=== PATIENT | female | born 1970 | race Caucasian/White ===

== ENCOUNTER → 2018-02-10 | Outpatient (CLI) | payer BC, OTHER ==
--- NOTE | 2018-02-11 14:23 | MAM ---
EXAM DESCRIPTION: 3D Screening BILATERAL : Digital Mammography. CLINICAL HISTORY: 47 years Female SCREEN . No personal history of breast cancer. Remote family history of breast cancer. Childbirth. Premenopausal. No HRT. Bilateral breast biopsies.. Lifetime risk of developing breast cancer (Tyrer-Cuzick model) is 14.4 %. COMPARISON: Bilateral 2-D screening digital mammography 02/07/2013. TECHNIQUE: Bilateral CC and MLO projection full-field images, Digital tomosynthesis mammographic technique. Bilateral digital 2-D full-field MLO images. CAD not utilized. FINDINGS: The breast parenchymal density pattern is: Scattered areas of fibroglandular density. . Stable nodular mass anterior superior right breast. Large lobulated circumscribed mass in the posterior medial left breast is no longer present. Focal asymmetry in the middle third of the left breast at the 230 clock position, approximately 7 cm from the nipple. No new focal, stellate mass or density, focal asymmetry , and no suspicious microcalcifications right breast. IMPRESSION: BI-RADS CATEGORY: 0 - INCOMPLETE- Need additional imaging evaluation. FOLLOW-UP: Recall for additional imaging: Special diagnostic images of the region of interest in the left breast along with targeted left breast ultrasound.. Written communication concerning the IMPRESSION and Follow-up, will be mailed to the patient and referring health care provider. Electronically signed by: Zane Caldera MD 02/11/2018 2:22 PM CDT
== END ==
LOC: MAMMO 16:28
PROVIDERS: ATTEND Family Medicine
DX: Z12.31 Encounter for screening mammogram for malignant neoplasm of breast (principal)

== ENCOUNTER → 2018-02-17 | Outpatient (CLI) | payer OTHER ==
--- NOTE | 2018-02-17 15:01 | US ---
EXAM DESCRIPTION: Breast,Left: Ultrasound CLINICAL HISTORY: 47 yearsFemaleABNORMAL MAMMO COMPARISON: Digital diagnostic mammogram left breast on this visit. Bilateral screening digital breast tomosynthesis 02/11/2016. TECHNIQUE: Transcutaneous scanning of the left breast utilizing tamez-scale and Doppler modes. Scanning performed by the auto refinisher and Dr. Caldera. FINDINGS: Scanning of the lateral left breast with emphasis at the 300 clock position 8 cm from the nipple. Heterogeneous fibroglandular and fatty elements. Small anechoic object with well-defined weber surrounded by fat measuring 2.6 mm, parallel orientation and posterior acoustic enhancement features. No distinct solid mass. No large calcifications or parenchymal edema. No overlying skin changes. No abnormal vascularity. IMPRESSION: 1. Bi-Rads Category 2: Benign. 2. Please refer to left breast digital diagnostic tomosynthesis and 2-D images on this visit. The FINDINGS and the FOLLOW-UP plan were reviewed in person with the patient after the examination. Written communication explaining the IMPRESSION and FOLLOW-UP will be mailed to the patient and referring care provider. Electronically signed by: Zane Caldera MD 02/17/2018 3:00 PM CDT
--- NOTE | 2018-02-17 15:57 | MAM ---
EXAM DESCRIPTION: 3D Diagnostic, Left: Digital Mammography CLINICAL HISTORY: 47 yearsFemaleABNORMAL MAMMO . Focal asymmetry upper outer quadrant middle third left breast.. Prior breast biopsies. COMPARISON: Bilateral screening digital breast tomosynthesis 02/10/2018. Left targeted breast ultrasound following this examination. TECHNIQUE: Left LM projection full-field images, digital mammographic tomosynthesis technique. CAD not utilized. FINDINGS: The breast parenchymal density pattern is: Scattered areas of fibroglandular density. Extremely dense breast tissue, which lowers the sensitivity of mammography. No skin thickening or nipple retraction focal asymmetry seen on the prior study is not as well demonstrated on full-field LM tomosynthesis of the left breast. Ultrasound: Scanning of the lateral left breast with emphasis at the 300 clock position 8 cm from the nipple. Heterogeneous fibroglandular and fatty elements. Small anechoic object with well-defined weber surrounded by fat measuring 2.6 mm, parallel orientation and posterior acoustic enhancement features. No distinct solid mass. No large calcifications or parenchymal edema. No overlying skin changes. No abnormal vascularity. IMPRESSION: Benign exam. BIRAD CATEGORY: 2 BENIGN FINDINGS. RECOMMENDATIONS: FOLLOW UP: Return to routine digital bilateral screening, one year interval from January 2018. The FINDINGS and the FOLLOW-UP plan were reviewed in person with the patient after the examination. Written communication explaining the IMPRESSION and FOLLOW-UP will be mailed to the patient and referring care provider. According to the [employer], yearly mammograms are recommended starting at age 40 and continuing as long as a woman is in good health. Any breast change noted on a breast self-exam should be reported promptly to the patient's healthcare provider. Breast MRI is recommended for women with an approximately 20-25% or greater lifetime risk of breast cancer, including women with a strong family history of breast or ovarian cancer and women who have been treated for Hodgkin's disease. A negative mammographic report should not delay tissue diagnosis in patients with significant clinical history or physical findings. Extremely dense breast tissue limits the sensitivity of digital mammography. Electronically signed by: Zane Caldera MD 02/17/2018 3:55 PM CDT
== END ==
LOC: MAMMO 12:02
PROVIDERS: ATTEND Family Medicine
DX: R92.8 Other abnormal and inconclusive findings on diagnostic imaging of breast (principal)
CPT/HCPCS: 76641; 77065; G0279